=== PATIENT | male | born 1995 | race American Indian/Alaskan Native ===

== ENCOUNTER 2017-05-18 04:30 | Emergency (ER) | payer OTHER ==
[2017-05-18 07:05] LABS: Bacteria,Urine 1+ /HPF (Negative); Bilirubin,Urine NEG (Negative); Blood,Urine SM (Negative); Color,Urine Straw (Yellow); Nitrite,Urine NEG (Negative); Protein,Urine <15 mg/dL mg/dL (Negative); Urobilinogen,Urine < 2.0 mg/dL (<2.0)
[2017-05-18] MEDS ORDERED: XYLOCAINE 1% MPF 5 mL INFILTRATI ONE (10:02)
[2017-05-18] MEDS ORDERED: ROCEPHIN IM ONE (10:02)
[2017-05-18] MEDS ORDERED: ZITHROMAX PO ONE (10:02)
--- NOTE | 2017-05-18 10:04 | Emergency Department Report ---
ED Male HPI - General Chief complaint: Urogenital-Male Stated complaint: STD Time Seen by Provider: 05/18/17 09:36 Source: patient Mode of arrival: Ambulatory Limitations: No Limitations - History of Present Illness Initial comments: 21 y.o. male presents with dysuria and penile discharge x 1 week. He had unprotected anal sex for the first time with girlfriend and the next day he began to have painful urination and discharge 2 days later. Denies low back pain , abdominal pain, testicular swelling or pain, urgency, and frequency. MD Complaint: penile discharge, dysuria -: week(s) (1) Location: penis Radiation: none Severity: mild Severity scale (0 -10): 0 Quality: burning Consistency: intermittent Improves with: none Worsens with: urination new sexual partner (same sexual partner, new position) discharge, dysuria. denies: swelling, mass, rash, urinary retention, blood in urine, fever, nausea/vomiting, incontinence - Related Data Sexually active: Yes Previous Rx's Medication Instructions Recorded Last Taken Type Amoxicillin [Amoxicillin TAB] 875 mg PO BID #20 tablet 05/30/15 Unknown Rx Ibuprofen [Motrin 800 MG tab] 800 mg PO Q8HR PRN #30 tablet 05/30/15 Unknown Rx Allergies Allergy/AdvReac Type Severity Reaction Status Date / Time No Known Allergies Allergy Unverified 05/30/15 15:57 ED Review of Systems ROS: Stated complaint: STD Other details as noted in HPI Constitutional: no symptoms reported, see HPI. denies: chills, diaphoresis, fever, malaise, weakness Respiratory: no symptoms reported, see HPI. denies: cough, orthopnea, shortness of breath, SOB with exertion, SOB at rest, stridor, wheezing Cardiovascular: as per HPI. denies: chest pain, palpitations, dyspnea on exertion, orthopnea, edema, syncope, paroxysmal nocturnal dyspnea Gastrointestinal: as per HPI. denies: abdominal pain, nausea, vomiting, diarrhea, constipation, hematemesis, melena, hematochezia Genitourinary: as per HPI, dysuria, discharge. denies: urgency, frequency, hematuria, testicular pain, testicular mass Skin: as per HPI. denies: rash, lesions, change in color, change in hair/nails , pruritus Neurological: denies: headache, weakness, paresthesias ED Past Medical Hx - Past Medical History Previous Medical History?: No - Surgical History Past Surgical History?: No - Social History Smoking Status: Never Smoker Substance Use Type: None - Medications Home Medications: Home Medications Medication Instructions Recorded Confirmed Last Taken Type Amoxicillin [Amoxicillin TAB] 875 mg PO BID #20 tablet 05/30/15 Unknown Rx Ibuprofen [Motrin 800 MG tab] 800 mg PO Q8HR PRN #30 tablet 05/30/15 Unknown Rx ED Physical Exam - General Limitations: No Limitations General appearance: alert, in no apparent distress - Respiratory Respiratory exam: Present: normal lung sounds bilaterally. Absent: respiratory distress - Cardiovascular Cardiovascular Exam: Present: regular rate, normal rhythm. Absent: systolic murmur, diastolic murmur, rubs, gallop - GI/Abdominal GI/Abdominal exam: Present: soft, normal bowel sounds - exam: Present: normal inspection, urethral discharge (thick white), circumcision. Absent: testicular tenderness, scrotal swelling, vertical testicular lie External exam: Present: normal external exam. Absent: erythema, swelling, lesions, lacerations, ecchymosis, bleeding - Extremities Exam Extremities exam: Present: normal inspection, full ROM, normal capillary refill - Neurological Exam Neurological exam: Present: alert, oriented X3 - Skin Skin exam: Present: warm, dry, intact, normal color. Absent: rash ED Course Vital Signs 05/18/17 05/18/17 04:36 05:46 Temperature 98.6 F 98.6 F Pulse Rate 72 63 Respiratory 20 18 Rate Blood Pressure 153/68 153/68 O2 Sat by Pulse 97 98 Oximetry ED Medical Decision Making - Medical Decision Making 21 y.o. male presents with dysuria and penile discharge x 1 week. Negative abdominal pain, back pain, testicular pain, urgency, frequency, urgency, and penile injury. Empirically treated for STD with azithromycin and rocephin. Instructed to f/u with health department or PCP. Critical care attestation.: If time is entered above; I have spent that time in minutes in the direct care of this critically ill patient, excluding procedure time. ED Disposition Clinical Impression: Exposure to sexually transmitted disease (STD) Disposition: DC-01 TO HOME OR SELFCARE Is pt being admited?: No Does the pt Need Aspirin: No Condition: Stable Instructions: Sexually Transmitted Diseases (ED), Safe Sex (ED), Chlamydia Infection (ED) Additional Instructions: Follow up with health department or primary care provider for full screening as discussed. Referrals: PRIMARY CARE,MD [Primary Care Provider] - 3-5 Days Forms: Work/School Release Form(ED) Time of Disposition: 10:40 Print Language: POLISH
[2017-05-18 10:54] VITALS: BP 131/83
== END 2017-05-18 10:57 | disposition home or self-care (01) ==
LOC: ED 04:30
DX: R30.0 Dysuria (principal); R36.9 Urethral discharge, unspecified; Z20.2 Contact with and (suspected) exposure to infections with a predominantly sexual mode of transmission
CPT/HCPCS: 81001; 96372; 99283; J0696